=== PATIENT | female | born 1975 | race Two or more races ===

== ENCOUNTER 2024-07-21 15:40 | Outpatient (RCR) | payer BC, SELFPAY ==
--- NOTE | 2024-07-31 19:59 | CTCFLWUP_ITS ---
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 S/p radiation therapy. Low Oncotype DX score of 8. BRCA 1 and 2 negative. Ms. Cunningham is premenopausal. Her last menstrual cycle was on May 05, 2021. Ms. Cunningham is started on antihormonal therapy on 03/21/2021. Ms. Cunningham was not able to tolerate Lupron and anastrozole which was causing pelvic pressure, palpitations along with elevated blood pressure. Changed to tamoxifen last menstrual cycle August 2022. Right oophorectomy for ovarian cyst in 2016. Left oophorectomy and hysterectomy on September 24, 2022 for left ovarian cyst as well as enlarged uterus. Currently Ms. Cunningham is on anastrozole, alendronate Citracal. DATE OF DIAGNOSIS: 06/24/2020 STAGE/TNM: Stage I T1 cN0 M0 ER/MO positive breast cancer TREATMENT HISTORY: Care?Plan Start?Date Cycle Day Intent Lupron?7.5?mg 06/17/2021 1 30 Palliative HISTORY OF PRESENT ILLNESS: Sebastian Cunningham is a 48-year-old ENG speaking female with history of hypertension, eczema as well as obesity had screening mammograms regularly for last 7 years. 2017: Ms. Cunningham had right oophorectomy for ovarian cyst. 06/14/2020: Bilateral screening mammograms? 07/20/2020: Right breast diagnostic mammogram as well as ultrasound? 09/19/2020: Stereotactic biopsy of the right breast lesion? 11/02/2020: BRCA 1and2 negative. 11/13/2020: Ultrasound-guided biopsy of the left breast mass? 01/02/2021: Patient had right breast lumpectomy as well as sentinel lymph node biopsy of right axilla? 03/15/2021: Oncotype DX? 03/21/2021: Patient is started on tamoxifen 20 mg p.o. daily. 04/03/2021-05/28/2021: Ms. Cunningham received 6600 cGy radiation therapy to the right breast in 55 fractions. 03/21/2021: Ms. Cunningham is started on Lupron and anastrozole 1 mg mg p.o. daily. Unfortunately she was not able to tolerate this regimen which was causing pelvic pressure, palpitations and hypertension. 07/23/2021: Ms. Cunningham is started on tamoxifen 20 mg p.o. daily. August 2022: The patient had last menstrual cycle. September 24, 2022: Ms. Cunningham had left oophorectomy for ovarian cyst as well as hysterectomy for enlarged uterus. September 2022. Patient stopped taking tamoxifen and started anastrozole as well as Citracal 1 tablet p.o. daily. 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 Venecia - 30 mg 1 tab Daily 2. anastrozole - 1 mg 1 tab Daily 3. aspirin - 81 mg 1 tab Daily 4. biotin - 10,000 mcg 1 Capsule As directed 5. cloNIDine - 0.1 mg/24 hr 1 Patch Weekly 6. ferrous sulfate - 325 mg (65 mg iron) 1 tab Daily 7. Flexeril - 10 mg 1 tab As directed 8. lisinopril-hydrochlorothiazide - 20-12.5 mg 1 tab Daily 9. magnesium oxide - 420 mg 1 tab Daily 10. multivitamin - 1 Capsule Daily 11. naproxen - 500 mg 1 tab As directed 12. Xanax - 0.5 mg 1 tab As needed Medications Last Reconciled by Katy Conley MA on 07/21/2024 ALLERGIES: No Known Drug Allergies REVIEW OF SYSTEMS: A complete 14-point review of systems was performed and is negative except as noted in interval history. PHYSICAL EXAMINATION: VITAL SIGNS: Temperature?98, B/P?138/88, Oxygen?Saturation?99% Weight?259?lbs PAIN: 0 - No pain ECOG Performance Status: 0 - Asymptomatic and fully active GENERAL APPEARANCE: Appears well, in no apparent distress, appropriately interactive. HEENT: Normocephalic, no temporal wasting, normal conjunctiva, no scleral icterus, normal hearing, lips without lesions, neck normal range of motion. CARDIOVASCULAR: Not assessed. PULMONARY: Normal respiratory effort, no respiratory distress or use of accessory muscles, speaking in full sentences, no tachypnea. EXTREMITIES: No pedal edema or cyanosis. SKIN: Normal skin appearance. NEUROLOGIC: Alert and oriented x4. PSHYCHIATRIC: Appropriate affect, mood normal, behavior normal, intact thought and speech. LABORATORY DATA: I have personally reviewed and interpreted each of the patient?s relevant lab tests, abnormal findings are below: Date 06/12/23 ??WHITE?BLOOD?COUNT?(Thou/mm3) 7.6 ??RED?BLOOD?COUNT?(Miln/mm3) 4.80 ??HEMOGLOBIN?(gm/dl) 12.9 ??HEMATOCRIT?(%) 39.1 ??PLATELET?COUNT?(Thou/mm3) 451?H ??NEUTROPHILS?%,?AUTO?(%) 68 ??LYMPH?%,?AUTO?(%) 25 ??NEUTROPHILS,?AUTO?(Thou/mm3) 5.2 ASSESSMENT/PLAN: The patient denies any complaints today. Denies any side effects from anastrozole. Ms. Cunningham had left oophorectomy and hysterectomy on September 24, 2022 for left ovarian cyst as well as enlarged uterus. She is currently on anastrozole. She is also taking alendronate and Citracal 1 tablet p.o. twice daily. She is tolerating anastrozole very well. Ms. Cunningham is clinically doing very well without any complaints. Has good appetite and good energy levels. 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 Tumor size 1.5 x 1 x 1 cm. S/p radiation therapy. Hypertension Eczema. Obesity Stroke. August 2022. Bone density test (02/19/2023) showed osteopenia. Continue anastrozole, alendronate and Citracal. Will see Ms. Cunningham back in clinic in 6 months with labs for follow-up. ORDERS: Cbc,cmp,mammogram RETURN TO CLINIC: 6 months BILLING AND COMPLIANCE: I reviewed external records from providers outside my specialty as summarized above. I spent a total of 50 minutes on this patient?s care on the day of their visit excluding time spent related to any billed procedures. This time includes time spent with the patient as well as time spent documenting in the medical record, reviewing patients records and tests, obtaining history, placing orders, communicating with other healthcare professionals, counseling the patient, family or caregiver, and/or care coordination for the diagnoses above. Electronically Signed by: Jayesh Alcantar MD T: 7:57 PM CC: Xavi?Edd? PCP: Michael Soto Referring: Michael Soto This document was completed utilizing speech recognition software. Grammatical errors, random word insertions, pronoun errors, and incomplete sentences are an occasional consequence of this system due to software limitations, ambient noise, and hardware issues. Any formal questions or concerns about the content, text or information contained within the body of this dictation should be directly addressed to the provider for clarification.
== END 2024-07-29 23:59 | disposition home or self-care (01) ==
LOC: SCTC 15:40
PROVIDERS: PCP Internal Medicine Pulmonary Disease; Referring Provider Internal Medicine Pulmonary Disease; Visit Provider Internal Medicine Hematology & Oncology
DX: C50.411 Malignant neoplasm of upper-outer quadrant of right female breast (principal); Z17.0 Estrogen receptor positive status [ER+]; Z17.21 Progesterone receptor positive status; Z17.32 Human epidermal growth factor receptor 2 negative status; Z90.11 Acquired absence of right breast and nipple; Z92.3 Personal history of irradiation; I10 Essential (primary) hypertension; M85.80 Other specified disorders of bone density and structure, unspecified site; Z90.710 Acquired absence of both cervix and uterus; Z90.722 Acquired absence of ovaries, bilateral; Z79.811 Long term (current) use of aromatase inhibitors; E66.9 Obesity, unspecified; Z68.43 Body mass index [BMI] 50.0-59.9, adult; L30.9 Dermatitis, unspecified; Z86.73 Personal history of transient ischemic attack (TIA), and cerebral infarction without residual deficits
CPT/HCPCS: 99212; G0463

== ENCOUNTER → 2024-09-06 | Outpatient (CLI) | payer BC, SELFPAY ==
--- NOTE | 2024-09-06 09:00 | XR_ITS ---
Examination: Screening digital mammography, bilateral Computer aided detection 3-D breast Tomosynthesis, bilateral Date and time of exam: 09/06/2024, 9:02 AM Comparisons: June 2023 Indications: Screening Technique: Nonmagnified MLO, CC views of the breasts to been obtained, reconstructed from 3-D Tomosynthesis images. R2 computer aided detection program utilized for evaluation of suspicious masses and/or abnormal calcifications. 3-D Tomosynthesis images obtained. Technologist: Findings: The breasts are heterogeneously dense, which may obscure small masses. Stable postoperative changes right breast. Left postbiopsy marker clip. Otherwise, no evidence of abnormal masses or suspicious calcifications. Impression: BI-RADS category 2: Benign findings Recommend 1 year follow-up mammogram
== END | disposition home or self-care (01) ==
PROVIDERS: PCP Internal Medicine Pulmonary Disease; Referring Provider Internal Medicine Hematology & Oncology; Visit Provider Internal Medicine Hematology & Oncology
DX: Z12.31 Encounter for screening mammogram for malignant neoplasm of breast (principal); R92.323 Mammographic fibroglandular density, bilateral breasts; C50.411 Malignant neoplasm of upper-outer quadrant of right female breast
CPT/HCPCS: 77063; 77067

== ENCOUNTER 2025-01-18 15:08 | Outpatient (RCR) | payer MEDICAID, SELFPAY ==
--- NOTE | 2025-01-23 06:18 | CTCFLWUP_ITS ---
Patient: SEBASTIAN CUNNINGHAM : 1975 Page 7 of 8 FOLLOW UP NOTE DATE OF SERVICE: 01/18/2025 NAME: SEBASTIAN CUNNINGHAM ACCOUNT: [id number] : 1975 AGE: 49 INTERVAL HISTORY: David, a female with history of hysterectomy and osteopenia, presented for follow-up. Her vocational rehabilitation supervisor recommended a two-year medication holiday due to improved bone density. She continues taking OTC calcium supplements. Trigger finger symptoms improved after discontinuing a sodium pill; she now uses a night sleeve for inflammation. She experiences nocturnal finger numbness attributed to sleeping position. August mammogram was normal. Plan includes continuing current management, monitoring symptoms, and scheduling future bone density tests in [place]. 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 S/p radiation therapy. Low Oncotype DX score of 8. BRCA 1 and 2 negative. Ms. Cunningham is premenopausal. Her last menstrual cycle was on May 05, 2021. Ms. Cunningham is started on antihormonal therapy on 03/21/2021. Ms. Cunningham was not able to tolerate Lupron and anastrozole which was causing pelvic pressure, palpitations along with elevated blood pressure. Changed to tamoxifen last menstrual cycle August 2022. Right oophorectomy for ovarian cyst in 2016. Left oophorectomy and hysterectomy on September 24, 2022 for left ovarian cyst as well as enlarged uterus. Currently Ms. Cunningham is on anastrozole, alendronate Citracal. DATE OF DIAGNOSIS: 06/24/2020 STAGE/TNM: Stage I T1 cN0 M0 ER/LA positive breast cancer TREATMENT HISTORY: Care?Plan Start?Date Cycle Day Intent Lupron?7.5?mg 06/17/2021 1 30 Palliative HISTORY OF PRESENT ILLNESS: Sebastian Cunningham is a 49-year-old ENG speaking female with history of hypertension, eczema as well as obesity had screening mammograms regularly for last 7 years. 2017: Ms. Cunningham had right oophorectomy for ovarian cyst. 06/14/2020: Bilateral screening mammograms? 07/20/2020: Right breast diagnostic mammogram as well as ultrasound? 09/19/2020: Stereotactic biopsy of the right breast lesion? 11/02/2020: BRCA 1and2 negative. 11/13/2020: Ultrasound-guided biopsy of the left breast mass? 01/02/2021: Patient had right breast lumpectomy as well as sentinel lymph node biopsy of right axilla? 03/15/2021: Oncotype DX? 03/21/2021: Patient is started on tamoxifen 20 mg p.o. daily. 04/03/2021-05/28/2021: Ms. Cunningham received 6600 cGy radiation therapy to the right breast in 55 fractions. 03/21/2021: Ms. Cunningham is started on Lupron and anastrozole 1 mg mg p.o. daily. Unfortunately she was not able to tolerate this regimen which was causing pelvic pressure, palpitations and hypertension. 07/23/2021: Ms. Cunningham is started on tamoxifen 20 mg p.o. daily. August 2022: The patient had last menstrual cycle. September 24, 2022: Ms. Cunningham had left oophorectomy for ovarian cyst as well as hysterectomy for enlarged uterus. September 2022. Patient stopped taking tamoxifen and started anastrozole as well as Citracal 1 tablet p.o. daily. 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 anastrozole - 1 mg 1 tab Daily 2. aspirin - 81 mg 1 tab Daily 3. biotin - 10,000 mcg 1 Capsule As directed 4. cloNIDine - 0.1 mg/24 hr 1 Patch Weekly 5. ferrous sulfate - 325 mg (65 mg iron) 1 tab Daily 6. Flexeril - 10 mg 1 tab As directed 7. lisinopril-hydrochlorothiazide - 20-12.5 mg 1 tab Daily 8. magnesium oxide - 420 mg 1 tab Daily 9. multivitamin - 1 Capsule Daily 10. naproxen - 500 mg 1 tab As directed 11. Xanax - 0.5 mg 1 tab As needed 12. ZyrTEC - 10 mg 1 tab Daily Medications Last Reconciled by Katy Conley MA on 01/18/2025 ALLERGIES: No Known Drug Allergies REVIEW OF SYSTEMS: A complete 14-point review of systems was performed and is negative except as noted in interval history. PHYSICAL EXAMINATION: VITAL SIGNS: Temperature?98.7, B/P?106/75, Oxygen?Saturation?96% PAIN: 0 - No pain ECOG Performance Status: None GENERAL APPEARANCE: Appears well, in no apparent distress, appropriately interactive. HEENT: Normocephalic, no temporal wasting, normal conjunctiva, no scleral icterus, normal hearing, lips without lesions, neck normal range of motion. CARDIOVASCULAR: Not assessed. PULMONARY: Normal respiratory effort, no respiratory distress or use of accessory muscles, speaking in full sentences, no tachypnea. EXTREMITIES: No pedal edema or cyanosis. SKIN: Normal skin appearance. NEUROLOGIC: Alert and oriented x4. PSHYCHIATRIC: Appropriate affect, mood normal, behavior normal, intact thought and speech. LABORATORY DATA: I have personally reviewed and interpreted each of the patient?s relevant lab tests, abnormal findings are below: Date 02/18/23 06/12/23 ??WHITE?BLOOD?COUNT?(Thou/mm3) 7.5 7.6 ??RED?BLOOD?COUNT?(Miln/mm3) 5.14 4.80 ??HEMOGLOBIN?(gm/dl) 13.8 12.9 ??HEMATOCRIT?(%) 41.7 39.1 ??PLATELET?COUNT?(Thou/mm3) 445?H 451?H ??NEUTROPHILS?%,?AUTO?(%) 62 68 ??LYMPH?%,?AUTO?(%) 26 25 ??NEUTROPHILS,?AUTO?(Thou/mm3) 4.6 5.2 ??GLUCOSE,RANDOM?(mg/dL) ? 103 ??BLOOD?UREA?NITROGEN?(mg/dL) ? 14 ??CREATININE?(mg/dL) ? 0.90 ??SODIUM?(mmol/L) ? 137 ??POTASSIUM?(mmol/L) ? 3.7 ??CHLORIDE?(mmol/L) ? 100 ??CrCl?(CandG)?(ml/min) ? 137.94 ??AST/SGOT?(Unit/L) ? 21 ??ALT/SGPT?(Unit/L) ? 18 ??ALKALINE?PHOSPHATASE?(Unit/L) ? 74 ??BILIRUBIN,?TOTAL?(mg/dL) ? 0.4 ??PROTEIN?TOTAL?(gm/dl) ? 7.5 ??ALBUMIN,?SERUM?(gm/dl) ? 4.9 ??GLOBULIN?(gm/dl) ? 2.6 ??ALBUMIN/GLOBULIN?RATIO ? 1.9 ??CALCIUM,?SERUM?(mg/dL) ? 9.6 ??CALCIUM?SERUM?(CORRECTED)?(mg/dL) ? 9.6 ??CEA?(O*)?(ng/ml) ? <?0.5 ASSESSMENT/PLAN: The patient denies any complaints today. Denies any side effects from anastrozole. Ms. Cunningham had left oophorectomy and hysterectomy on September 24, 2022 for left ovarian cyst as well as enlarged uterus. She is currently on anastrozole. She is also taking alendronate and Citracal 1 tablet p.o. twice daily. She is tolerating anastrozole very well. Ms. Cunningham is clinically doing very well without any complaints. Has good appetite and good energy levels. 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 Tumor size 1.5 x 1 x 1 cm. S/p radiation therapy. Hypertension Eczema. Obesity Stroke. August 2022. Bone density test (02/19/2023) showed osteopenia. Continue anastrozole, alendronate and Citracal. Osteopenia Assessment: Patient has a history of osteopenia confirmed by bone density scan. She was previously on medication for this condition. Recent bone density test showed improvement, leading to a recommendation from vocational rehabilitation supervisor Dr. Morse for a two-year medication holiday. Patient continues to take [id number] calcium supplements. Plan: - Continue [id number]-fke-mooabby calcium supplementation - Adhere to two-year medication holiday as recommended by vocational rehabilitation supervisor - Schedule future bone density tests in [place] - Follow up in 6 months Trigger finger Assessment: Patient reports improvement in trigger finger symptoms after discontinuing a sodium pill. Previously received cortisone injections for management but declined surgical intervention. Patient uses a sleeve at night for inflammation control. Plan: - Continue use of night sleeve for inflammation management - Monitor symptoms and effectiveness of current conservative management ORDERS: Order # Description RETURN TO CLINIC: I reviewed the diagnosis, prognosis, and recommended treatment/procedure options with the patient (and/or their legal small business representative), including the potential benefits, risks, side effects and alternative therapies. We also discussed the option of no treatment and the possibility of clinical trial participation, if applicable. All questions were addressed, and they demonstrated understanding. They provided informed consent to proceed with the proposed plan of care. BILLING AND COMPLIANCE: I reviewed external records from providers outside my specialty as summarized above. I spent a total of 50 minutes on this patient?s care on the day of their visit excluding time spent related to any billed procedures. This time includes time spent with the patient as well as time spent documenting in the medical record, reviewing patients records and tests, obtaining history, placing orders, communicating with other healthcare professionals, counseling the patient, family or caregiver, and/or care coordination for the diagnoses above. Electronically Signed by: {Object.Sanct_ID*[email or web address]@M}, {Object.Sanct_ID*PnP.Suffix@U} D: {Object.Sanct_Date} T: {Object.Sanct_Time} CC: Xavi?Edd,? PCP: Michael Soto Referring: Michael Davis This document was completed utilizing speech recognition software. Grammatical errors, random word insertions, pronoun errors, and incomplete sentences are an occasional consequence of this system due to software limitations, ambient noise, and hardware issues. Any formal questions or concerns about the content, text or information contained within the body of this dictation should be directly addressed to the provider for clarification.
== END 2025-01-26 23:59 | disposition home or self-care (01) ==
LOC: SCTC 15:08
PROVIDERS: PCP Internal Medicine Pulmonary Disease; Referring Provider Internal Medicine Pulmonary Disease; Visit Provider Internal Medicine Hematology & Oncology
DX: C50.411 Malignant neoplasm of upper-outer quadrant of right female breast (principal); Z17.0 Estrogen receptor positive status [ER+]; Z17.21 Progesterone receptor positive status; Z17.32 Human epidermal growth factor receptor 2 negative status; Z90.11 Acquired absence of right breast and nipple; Z92.3 Personal history of irradiation; M85.80 Other specified disorders of bone density and structure, unspecified site; I10 Essential (primary) hypertension; E66.9 Obesity, unspecified; M65.30 Trigger finger, unspecified finger; Z90.722 Acquired absence of ovaries, bilateral; Z90.710 Acquired absence of both cervix and uterus; Z79.811 Long term (current) use of aromatase inhibitors
CPT/HCPCS: 99212; G0463

== ENCOUNTER → 2025-04-06 | Outpatient (CLI) | payer MEDICAID, SELFPAY ==
--- NOTE | 2025-04-06 12:20 | XR_ITS ---
Examination: Bone densitometry Date and time of exam: April 06 25, 1216 hours INDICATION: Hysterectomy age 47, breast carcinoma diagnosis, rheumatoid arthritis diagnosis Technique: Lumbar spine and hip total bone mineralization values of an calculated. Peak reference and age match control results have been displayed. Findings: Lumbar spine total bone mineralization is 1.377 gm/cm2. This is 3.0 standard deviations above peak reference. This is 3.8 standard deviations above age-matched controls. Hip total bone mineralization is 1.230 gm/cm2 This is 2.0 standard deviations above peak reference. This is 2.4 standard deviations above age-matched controls Impression: There is normal mineralization based on lumbar spine measurements. There is normal mineralization based on hip measurements Lumbar mineralization is increased 4.5% compared with February 19, 2023. Hip mineralization is decreased 4.8% compared with February 19, 2023
== END | disposition home or self-care (01) ==
PROVIDERS: PCP Internal Medicine Pulmonary Disease; Referring Provider Internal Medicine Hematology & Oncology; Visit Provider Internal Medicine Hematology & Oncology
DX: M85.89 Other specified disorders of bone density and structure, multiple sites (principal); C50.411 Malignant neoplasm of upper-outer quadrant of right female breast
CPT/HCPCS: 77080